=== PATIENT | male | born 1990 | race Caucasian/White ===

== ENCOUNTER 2017-08-06 09:39 | Emergency (ER) | payer OTHER ==
[2017-08-06] MEDS: MUPIROCIN 2% 22 GM OINT TOP (10:54)
== END 2017-08-06 10:56 | disposition home or self-care (01) ==
LOC: FTE 09:39
DX: S30.813A Abrasion of scrotum and testes, initial encounter (principal); X58.XXXA Exposure to other specified factors, initial encounter; Y92.9 Unspecified place or not applicable
CPT/HCPCS: 99282; Z7502

== ENCOUNTER 2018-02-27 23:46 | Emergency (ER) | payer OTHER | END 2018-02-28 01:30 | disposition home or self-care (01) | LOC: FTE 02-28 01:30 | DX: N47.2 Paraphimosis (principal) | CPT/HCPCS: 99283; Z7502 ==